=== PATIENT | female | born 1995 | race Caucasian/White ===

== ENCOUNTER 2019-10-28 04:55 | Emergency (ER) | payer BC, MEDICAID ==
[2019-10-28 05:14] VITALS: BP 144/96
--- NOTE | 2019-10-28 05:24 | ER Document Report ---
HPI - HPI Time Seen by Provider: 10/28/19 05:19 Pain Level: 2 Context: Patient is a 24-year-old female that comes emergency department for chief complaint of a rash over her hands and feet that have been breaking out over the past couple of days. She states these are itchy and irritating. She denies pain, she denies any obvious bites, she denies any other associated symptoms. She is third trimester , G1, P0. She does have a history of eczema. Family members do not have a rash. She denies abdominal pain, she is feeling baby move, she denies vaginal bleeding, she denies fever, vomiting, or rash any other locations. She has not tried any medications for this. - REPRODUCTIVE Reproductive: REPORTS: : Past Medical History - General Information source: Patient - Social History Smoking Status: Never Smoker Frequency of alcohol use: None Drug Abuse: None Lives with: Family Family History: Reviewed & Not Pertinent Patient has suicidal ideation: No Patient has homicidal ideation: No - Medical History Medical History: Negative Surgical Hx: Negative - Immunizations Immunizations up to date: Yes Hx Diphtheria, Pertussis, Tetanus Vaccination: Yes Vertical Provider Document - CONSTITUTIONAL General Appearance: WD/WN, No Apparent Distress - HEENT HEENT: Atraumatic, Normal ENT Exam, Normocephalic - NECK Neck: Normal Inspection - RESPIRATORY Respiratory: Breath Sounds Normal, No Respiratory Distress - CARDIOVASCULAR Cardiovascular: Regular Rate, Regular Rhythm - GI/ABDOMEN Gastrointestinal: Abdomen Soft, Abdomen Non-Tender. negative: Abdomen Tender - Gravid abdomen - BACK Back: Normal Inspection - MUSCULOSKELETAL/EXTREMETIES Musculoskeletal/Extremeties: MAEW, FROM, Non-Tender - NEURO Level of Consciousness: Awake, Alert, Appropriate Motor/Sensory: No Motor Deficit, No Sensory Deficit - DERM Integumentary: Warm, Dry, Rash - Rash over the dorsum of the hands bilaterally and minimally over the palms, a few excoriated areas, isolated and recently opened either papules or vesicles, maculopapular rash is also slightly on the feet and toes. No induration, fluctuance, tenderness, concerning erythema, or other concerning findings noted Course - Re-evaluation Re-evalutation: Initially patient was very anxious. She has small areas over the hands dorsally and over the palms and also over the feet where she has excoriations, macular papular rash. Nonspecific. Each individual area is distinct however. No pustules, induration, fluctuance, significant erythema, or swelling. Normal extremities otherwise. Does not appear to be bites, does not appear to be infectious, not consistent with syphilis. No obvious rashes associated with . Patient has a history of eczema and based on the areas in question and itchiness I suspect this is related to eczema. Patient will be provided with steroids to apply minimally, she is in third trimester, provided with antihistamine, discussed expectations, follow-up, return precautions. Patient states appreciation and agreement. - Vital Signs Vital signs: Temp Pulse Resp BP Pulse Ox 98.2 F 99 16 144/96 H 99 10/28/19 05:13 10/28/19 05:13 10/28/19 05:13 10/28/19 05:13 10/28/19 05:13 Discharge - Discharge Clinical Impression: Skin rash Condition: Stable Disposition: HOME, SELF-CARE Additional Instructions: Your evaluation does not appear to be infectious, this is most likely autoimmune and related to your eczema. These also do not appear to be insect bites. No secondary infection is noted at this time in addition. I recommend that you take the antihistamine, apply the least amount possible of the cream and immediately stop as soon as symptoms improve or resolve. Follow-up with [facility] for additional evaluation and recommendations. Return for any concerning symptoms including developing or spreading redness, swelling, fever, or any other concerning or worsening symptoms. Prescriptions: Diphenhydramine HCl 1 - 2 tab PO Q6H PRN #30 tablet PRN Reason: Hydrocortisone Acetate [Hydrocortisone] 28 gm TP ASDIR PRN #1 oint...g. PRN Reason: Referrals: MIGUEL XIE MD [Primary Care Provider] - Follow up as needed
== END 2019-10-28 05:25 | disposition home or self-care (01) ==
LOC: ER 04:55
DX: O26.893 Other specified pregnancy related conditions, third trimester (principal); R21 Rash and other nonspecific skin eruption; Z3A.36 36 weeks gestation of pregnancy
CPT/HCPCS: 99282